=== PATIENT | female | born 2000 ===

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

== ENCOUNTER 2019-03-03 15:11 | Emergency (ER) | payer OTHER ==
[2019-03-03 15:36] VITALS: BP 157/99
[2019-03-03 16:10] LABS: Bilirubin,Urine NEG (Negative); Blood,Urine NEG (Negative); Color,Urine Yellow (Yellow); Protein,Urine <15 mg/dL mg/dL (Negative)
[2019-03-03 16:14] LABS: HCG Qualitative,Urine Negative (Negative)
--- NOTE | 2019-03-03 17:37 | Emergency Department Report ---
ED Female HPI - General Chief complaint: Urogenital-Female Stated complaint: UTI Time Seen by Provider: 03/03/19 17:32 Source: patient Mode of arrival: Ambulatory Limitations: No Limitations - History of Present Illness Initial comments: 18-year-old -[place] female comes to the emergency room taken as she has a UTI. Patient states that she's been having dysuria off and on for about 2 months. Patient reports that she has pain at the bottom of her stomach that started last night. Patient also complains of lower back pain. Patient's last menstrual period was 01/23/2019. Patient does admit to discharge. She denies any fever chills or nausea no vomiting. MD Complaint: vaginal discharge, dysuria, pelvic pain -: days(s), month(s) (2 or dysuria), During the night (pain in pelvic) Location: suprapubic Quality: cramping, sharp Consistency: constant Improves with: none Worsens with: none Are you Now?: No Last Menstrual Period: 01/23/19 EDC: 10/30/19 Associated Symptoms: vaginal discharge, abdominal pain, dysuria. denies: nausea/vomiting, fever/chills - Related Data Sexually active: Yes (unprotected) Previous Rx's Medication Instructions Recorded Last Taken Type Nitrofurantoin [place]/M-Cryst 100 mg PO Q12HR #14 capsule 05/24/17 Unknown Rx [Macrobid CAP] Phenazopyridine [Pyridium] 100 mg PO TID PRN #9 tab 05/24/17 Unknown Rx Azithromycin [Zithromax TAB] 1,000 mg PO ONCE #4 tablet 03/03/19 Unknown Rx Allergies Allergy/AdvReac Type Severity Reaction Status Date / Time No Known Allergies Allergy Verified 03/03/19 15:13 ED Review of Systems ROS: Stated complaint: UTI Other details as noted in HPI ED Past Medical Hx - Past Medical History Previous Medical History?: No - Surgical History Past Surgical History?: No - Social History Smoking Status: Current Every Day Smoker Substance Use Type: None - Medications Home Medications: Home Medications Medication Instructions Recorded Confirmed Last Taken Type Nitrofurantoin [place]/M-Cryst 100 mg PO Q12HR #14 capsule 05/24/17 Unknown Rx [Macrobid CAP] Phenazopyridine [Pyridium] 100 mg PO TID PRN #9 tab 05/24/17 Unknown Rx Azithromycin [Zithromax TAB] 1,000 mg PO ONCE #4 tablet 03/03/19 Unknown Rx ED Physical Exam - General Limitations: No Limitations General appearance: alert, in no apparent distress - Head Head exam: Present: atraumatic, normocephalic - Eye Eye exam: Present: normal appearance - ENT ENT exam: Present: mucous membranes moist - GI/Abdominal GI/Abdominal exam: Present: soft, tenderness (upper pubic). Absent: distended - External exam: Present: normal external exam Speculum exam: Present: vaginal discharge, cervical discharge (purulent greenish discharge) Bi-manual exam: Present: normal bi-manual exam. Absent: cervical motion tendernes, adnexal tenderness, uterine enlargement, uterine tenderness - Extremities Exam Extremities exam: Present: normal inspection, full ROM - Back Exam Back exam: Present: normal inspection - Neurological Exam Neurological exam: Present: alert, oriented X3 - Psychiatric Psychiatric exam: Present: normal affect, normal mood - Skin Skin exam: Present: warm, dry, intact, normal color. Absent: rash ED Course Vital Signs 03/03/19 15:35 Temperature 97.9 F Pulse Rate 99 H Respiratory 18 Rate Blood Pressure 157/99 O2 Sat by Pulse 99 Oximetry ED Medical Decision Making - Medical Decision Making Patient has been evaluated by this provider in fast track. Pelvic exam shows copious amount of greenish yellow discharge. Wet prep came back positive for many polynuclear sales. We'll treat patient for gonorrhea with Rocephin 250 mg IM Prescription for azithromycin 250 mg 4 pills at once. Discussed the patient she is to follow-up at the health [facility] for further STD check. Critical care attestation.: If time is entered above; I have spent that time in minutes in the direct care of this critically ill patient, excluding procedure time. ED Disposition Clinical Impression: STD (female), Dysuria Disposition: DC-01 TO HOME OR SELFCARE Is pt being admited?: No Does the pt Need Aspirin: No Condition: Stable Instructions: Sexually Transmitted Diseases (ED), Safe Sex (ED) Additional Instructions: Complete antibiotic as prescribed. Do not have sexual intercourse until her partner has been tested and treated. Please bring your picture ID to medical records here at the hospital to obtain your results. I also highly recommend free to follow-up at the health department for further STD check. He will need to be evaluated to see if you have HIV, herpes, hepatitis, syphilis. Prescriptions: Azithromycin [Zithromax TAB] 1,000 mg PO ONCE #4 tablet Referrals: VASQUEZ RODRIGEZ MD [Primary Care Provider] - 3-5 Days
[2019-03-03] MEDS ORDERED: ROCEPHIN IM ONE (18:13)
[2019-03-03] MEDS ORDERED: XYLOCAINE 1% MPF 5 mL INFILTRATI ONE (18:13)
[2019-03-03] MEDS ORDERED: IBUPROFEN PO ONE (18:15)
== END 2019-03-03 18:45 | disposition home or self-care (01) ==
LOC: ED 15:11
DX: A64 Unspecified sexually transmitted disease (principal); F17.200 Nicotine dependence, unspecified, uncomplicated; Z79.899 Other long term (current) drug therapy
CPT/HCPCS: 81001; 81025; 87210; 87591; 96372; 99284; J0696

== ENCOUNTER 2019-09-02 05:34 | Emergency (ER) | payer SELFPAY ==
[2019-09-02 05:41] VITALS: BP 147/93
[2019-09-02 06:46] LABS: Bilirubin,Urine NEG (Negative); Blood,Urine LG (Negative); Color,Urine Yellow (Yellow); Urobilinogen,Urine < 2.0 mg/dL (<2.0)
[2019-09-02 06:49] LABS: WBC,Urine > 182.0 /HPF (0.0-6.0)
[2019-09-02] MEDS ORDERED: PHENAZOPYRIDINE 200 MG TAB PO ONE (06:51)
--- NOTE | 2019-09-02 06:55 | Emergency Department Report ---
ED General Adult HPI - General Chief complaint: Urogenital-Female Stated complaint: POSS UTI Time Seen by Provider: 09/02/19 06:51 Source: patient Mode of arrival: Ambulatory Limitations: No Limitations - History of Present Illness Initial comments: Patient presents to the emergency department with a chief complaint of burning with urination that started early this morning. She denies fever or abdominal pain. Patient has no other symptoms. -: Sudden Radiation: non-radiation Severity scale (0 -10): 2 Quality: burning Consistency: constant Improves with: none Worsens with: none Associated Symptoms: denies other symptoms Treatments Prior to Arrival: none - Related Data Previous Rx's Medication Instructions Recorded Last Taken Type Nitrofurantoin [place]/M-Cryst 100 mg PO Q12HR #14 capsule 05/24/17 Unknown Rx [Macrobid CAP] Phenazopyridine [Pyridium] 100 mg PO TID PRN #9 tab 05/24/17 Unknown Rx Azithromycin [Zithromax TAB] 1,000 mg PO ONCE #4 tablet 03/03/19 Unknown Rx Phenazopyridine [Pyridium] 200 mg PO BID #6 tab 09/02/19 Unknown Rx Sulfamethoxazole/Trimethoprim 1 each PO BID #14 tablet 09/02/19 Unknown Rx [Bactrim DS TAB] traMADol [Ultram] 50 mg PO Q6HR PRN #15 tablet 09/02/19 Unknown Rx Allergies Allergy/AdvReac Type Severity Reaction Status Date / Time No Known Allergies Allergy Verified 03/03/19 15:13 ED Review of Systems ROS: Stated complaint: POSS UTI Other details as noted in HPI Comment: All other systems reviewed and negative Constitutional: denies: chills, fever Eyes: denies: eye pain, eye discharge, vision change ENT: denies: ear pain, throat pain Respiratory: denies: cough, shortness of breath, wheezing Cardiovascular: denies: chest pain, palpitations Endocrine: no symptoms reported Gastrointestinal: denies: abdominal pain, nausea, diarrhea Genitourinary: dysuria. denies: urgency, discharge Musculoskeletal: denies: back pain, joint swelling, arthralgia Skin: denies: rash, lesions Neurological: denies: headache, weakness, paresthesias Psychiatric: denies: anxiety, depression Hematological/Lymphatic: denies: easy bleeding, easy bruising ED Past Medical Hx - Past Medical History Previous Medical History?: No - Surgical History Past Surgical History?: No - Social History Smoking Status: Former Smoker Substance Use Type: Alcohol, Marijuana - Medications Home Medications: Home Medications Medication Instructions Recorded Confirmed Last Taken Type Nitrofurantoin [place]/M-Cryst 100 mg PO Q12HR #14 capsule 05/24/17 Unknown Rx [Macrobid CAP] Phenazopyridine [Pyridium] 100 mg PO TID PRN #9 tab 05/24/17 Unknown Rx Azithromycin [Zithromax TAB] 1,000 mg PO ONCE #4 tablet 03/03/19 Unknown Rx Phenazopyridine [Pyridium] 200 mg PO BID #6 tab 09/02/19 Unknown Rx Sulfamethoxazole/Trimethoprim 1 each PO BID #14 tablet 09/02/19 Unknown Rx [Bactrim DS TAB] traMADol [Ultram] 50 mg PO Q6HR PRN #15 tablet 09/02/19 Unknown Rx ED Physical Exam - General Limitations: No Limitations General appearance: alert, in no apparent distress - Head Head exam: Present: atraumatic, normocephalic - Eye Eye exam: Present: normal appearance, PERRL, EOMI - ENT ENT exam: Present: mucous membranes moist - Neck Neck exam: Present: normal inspection - Respiratory Respiratory exam: Present: normal lung sounds bilaterally. Absent: respiratory distress - Cardiovascular Cardiovascular Exam: Present: regular rate, normal rhythm. Absent: systolic murmur, diastolic murmur, rubs, gallop - GI/Abdominal GI/Abdominal exam: Present: soft, normal bowel sounds. Absent: distended, tenderness - Extremities Exam Extremities exam: Present: normal inspection - Back Exam Back exam: Present: normal inspection - Neurological Exam Neurological exam: Present: alert, oriented X3, CN II-XII intact - Psychiatric Psychiatric exam: Present: normal affect, normal mood - Skin Skin exam: Present: warm, dry, intact, normal color. Absent: rash ED Course Vital Signs 09/02/19 05:38 Temperature 97.8 F Pulse Rate 101 H Respiratory 18 Rate Blood Pressure 147/93 O2 Sat by Pulse 95 Oximetry ED Medical Decision Making - Lab Data Lab Results 09/02/19 Range/Units 05:35 Urine Color Yellow (Yellow) Urine Turbidity Cloudy (Clear) Urine pH 6.0 (5.0-7.0) Ur Specific [place] 1.012 (1.003-1.030) Urine Protein 30 mg/dl (Negative) mg/dL Urine Glucose (UA) Neg (Negative) mg/dL Urine Ketones Neg (Negative) mg/dL Urine Blood Lg (Negative) Urine Nitrite Neg (Negative) Urine Bilirubin Neg (Negative) Urine Urobilinogen < 2.0 (<2.0) mg/dL Ur Leukocyte Esterase Lg (Negative) Urine WBC (Auto) > 182.0 H (0.0-6.0) /HPF Urine RBC (Auto) 77.0 (0.0-6.0) /HPF U Epithel Cells (Auto) 3.0 (0-13.0) /HPF Critical care attestation.: If time is entered above; I have spent that time in minutes in the direct care of this critically ill patient, excluding procedure time. ED Disposition Clinical Impression: UTI (urinary tract infection), Dysuria Disposition: TO HOME OR SELFCARE Is pt being admited?: No Does the pt Need Aspirin: No Condition: Stable Instructions: Urinary Tract Infection in Women (ED) Additional Instructions: return if worse Prescriptions: Sulfamethoxazole/Trimethoprim [Bactrim DS TAB] 1 each PO BID #14 tablet Phenazopyridine [Pyridium] 200 mg PO BID #6 tab traMADol [Ultram] 50 mg PO Q6HR PRN #15 tablet PRN Reason: Pain Referrals: [facility] [Provider Group] - 3-5 Days [facility] [Provider Group] - 3-5 Days Time of Disposition: 07:06
[2019-09-02 06:59] LABS: HCG Qualitative,Urine Negative (Negative)
[2019-09-02] MEDS ORDERED: traMADol 50 MG TAB PO ONE (07:02)
[2019-09-02] MEDS ORDERED: SULFAMETHOXAZOLE/TRIMETHOPRIM 800/160MG DS TAB PO ONE (07:02)
== END 2019-09-02 07:34 | disposition home or self-care (01) ==
LOC: ED 05:34
DX: N39.0 Urinary tract infection, site not specified (principal); Z87.891 Personal history of nicotine dependence; F12.10 Cannabis abuse, uncomplicated
CPT/HCPCS: 81001; 81025

== ENCOUNTER 2020-04-19 17:29 | Emergency (ER) | payer SELFPAY ==
[2020-04-19 18:13] VITALS: BP 141/98
--- NOTE | 2020-04-19 18:14 | Event Note ---
ED Screening Note ED Screening Note: dysuria that began a week ago states she gets frequent UTIs no urinary frequency states she has been any azo occasional nausea lower back pain no vomiting no diarrhea states she has also been constipated no abd pain PMHx none no allergies to meds LNMP: 03/23/2020 This initial assessment/diagnostic orders/clinical plan/treatment(s) is/are subject to change based on patients health status, clinical progression and re- assessment by fellow clinical providers in the ED. Further treatment and workup at subsequent clinical providers discretion. Patient/guardian urged not to elope from the ED as their condition may be serious if not clinically assessed and managed. Initial orders include: UA, urine preg
--- NOTE | 2020-04-19 18:36 | Emergency Department Report ---
ED Female HPI - General Chief complaint: Urogenital-Female Stated complaint: UTI/BELLY BUTTON LEAKING Time Seen by Provider: 04/19/20 18:10 Source: patient Mode of arrival: Ambulatory Limitations: No Limitations - History of Present Illness Initial comments: pt is a 19 yo female who presents to the ED with c/o dysuria that began a week ago states she gets frequent UTIs no urinary frequency states she has been taking azo occasional nausea lower back pain no vomiting no diarrhea no abd pain no vaginal discharge or irritation or vaginal pain she states she has intermittent constipation but is tolerating PO intake no vomiting PMHx none no allergies to meds LNMP: 03/23/2020 - Related Data Previous Rx's Medication Instructions Recorded Last Taken Type Nitrofurantoin Gove/M-Cryst 100 mg PO Q12HR #14 capsule 05/24/17 Unknown Rx [Macrobid CAP] Phenazopyridine [Pyridium] 100 mg PO TID PRN #9 tab 05/24/17 Unknown Rx Azithromycin [Zithromax TAB] 1,000 mg PO ONCE #4 tablet 03/03/19 Unknown Rx Phenazopyridine [Pyridium] 200 mg PO BID #6 tab 09/02/19 Unknown Rx Sulfamethoxazole/Trimethoprim 1 each PO BID #14 tablet 09/02/19 Unknown Rx [Bactrim DS TAB] traMADoL [Ultram] 50 mg PO Q6HR PRN #15 tablet 09/02/19 Unknown Rx Ondansetron [Zofran Odt] 4 mg PO Q8HR PRN #10 tab.rapdis 04/19/20 Unknown Rx cephALEXin [Keflex] 500 mg PO BID 7 Days #14 cap 04/19/20 Unknown Rx Allergies Allergy/AdvReac Type Severity Reaction Status Date / Time No Known Allergies Allergy Verified 03/03/19 15:13 ED Review of Systems ROS: Stated complaint: UTI/BELLY BUTTON LEAKING Other details as noted in HPI Comment: All other systems reviewed and negative ED Past Medical Hx - Past Medical History Previous Medical History?: Yes Additional medical history: migraines, UTI - Surgical History Past Surgical History?: No - Social History Smoking Status: Current Every Day Smoker Substance Use Type: Marijuana - Medications Home Medications: Home Medications Medication Instructions Recorded Confirmed Last Taken Type Nitrofurantoin Gove/M-Cryst 100 mg PO Q12HR #14 capsule 05/24/17 Unknown Rx [Macrobid CAP] Phenazopyridine [Pyridium] 100 mg PO TID PRN #9 tab 05/24/17 Unknown Rx Azithromycin [Zithromax TAB] 1,000 mg PO ONCE #4 tablet 03/03/19 Unknown Rx Phenazopyridine [Pyridium] 200 mg PO BID #6 tab 09/02/19 Unknown Rx Sulfamethoxazole/Trimethoprim 1 each PO BID #14 tablet 09/02/19 Unknown Rx [Bactrim DS TAB] traMADoL [Ultram] 50 mg PO Q6HR PRN #15 tablet 09/02/19 Unknown Rx Ondansetron [Zofran Odt] 4 mg PO Q8HR PRN #10 tab.rapdis 04/19/20 Unknown Rx cephALEXin [Keflex] 500 mg PO BID 7 Days #14 cap 04/19/20 Unknown Rx ED Physical Exam - General Limitations: No Limitations General appearance: alert, in no apparent distress - Head Head exam: Present: atraumatic, normocephalic - Eye Eye exam: Present: normal appearance - ENT ENT exam: Present: mucous membranes moist - Respiratory Respiratory exam: Present: normal lung sounds bilaterally. Absent: respiratory distress, wheezes, rales, rhonchi, stridor, chest wall tenderness, accessory muscle use, decreased breath sounds, prolonged expiratory - Cardiovascular Cardiovascular Exam: Present: regular rate, normal rhythm, normal heart sounds. Absent: systolic murmur, diastolic murmur, rubs, gallop - GI/Abdominal GI/Abdominal exam: Present: soft, normal bowel sounds, other (possible small umbilical hernia easily reducible no signs of strangulation, no abnormality present to the skin of the umbilicus ). Absent: distended, tenderness, guarding, rebound, rigid - Back Exam Back exam: Absent: CVA tenderness (R), CVA tenderness (L) - Neurological Exam Neurological exam: Present: alert, oriented X3 - Psychiatric Psychiatric exam: Present: normal affect, normal mood - Skin Skin exam: Present: warm, dry, intact ED Course Vital Signs 04/19/20 18:05 Temperature 98.1 F Pulse Rate 85 Respiratory 18 Rate Blood Pressure 141/98 [Left] O2 Sat by Pulse 98 Oximetry ED Medical Decision Making - Lab Data Lab Results 04/19/20 Range/Units 18:26 Urine Color Corie (Yellow) Urine Turbidity Clear (Clear) Urine pH 7.0 (5.0-7.0) Ur Specific [place] 1.005 (1.003-1.030) Urine Protein <15 mg/dl (Negative) mg/dL Urine Glucose (UA) Neg (Negative) mg/dL Urine Ketones Neg (Negative) mg/dL Urine Blood Neg (Negative) Urine Nitrite Pos (Negative) Ur Reducing Substances Not Reportable Urine Bilirubin Neg (Negative) Urine Ictotest Not Reportable Urine Urobilinogen 4.0 (<2.0) mg/dL Ur Leukocyte Esterase Sm (Negative) Urine WBC (Auto) 19.0 H (0.0-6.0) /HPF Urine RBC (Auto) 5.0 (0.0-6.0) /HPF U Epithel Cells (Auto) 17.0 H (0-13.0) /HPF Urine Bacteria (Auto) 2+ (Negative) /HPF Urine Mucus Few /HPF Urine Yeast (Budding) 1+ /HPF Urine HCG, Qual Negative (Negative) - Medical Decision Making pt is a 19 yo female who presents to the ED with c/o dysuria that began a week ago states she gets frequent UTIs no urinary frequency states she has been taking azo occasional nausea lower back pain no vomiting no diarrhea no abd pain no vaginal discharge or irritation or vaginal pain she states she has intermittent constipation but is tolerating PO intake no vomiting PMHx none no allergies to meds LNMP: 03/23/2020 vss on exam: possible small umbilical hernia easily reducible no signs of strangulation, no abnormality present to the skin of the umbilicus, no abd ttp, no guarding, no rebound, no rigidity, no peritoneal signs, normal bowel sounds, no CVAT. Urine is negative. UA with small amount of white blood cells and leukocyte esterase, there are many epithelial cells, could be related to contamination, but due to urinary symptoms will treat patient for UTI. Will have patient follow-up with a primary care doctor due to frequent urinary tract infections for further evaluation and management and to retest urine. pt given prescription for keflex and zofran. advised pt please take medication as prescribed. increase your water intake. please follow up with a primary care doctor and discuss frequent urinary tract infections. return to the emergency room for any new or worsening symptoms. Critical care attestation.: If time is entered above; I have spent that time in minutes in the direct care of this critically ill patient, excluding procedure time. ED Disposition Clinical Impression: UTI (urinary tract infection) Qualifiers: Urinary tract infection type: acute cystitis Hematuria presence: without hematuria Qualified Code(s): N30.00 - Acute cystitis without hematuria Disposition: TO HOME OR SELFCARE Is pt being admited?: No Does the pt Need Aspirin: No Condition: Stable Instructions: Urinary Tract Infection in Women (ED) Additional Instructions: please take medication as prescribed. increase your water intake. please follow up with a primary care doctor and discuss frequent urinary tract infections. return to the emergency room for any new or worsening symptoms. Prescriptions: cephALEXin [Keflex] 500 mg PO BID 7 Days #14 cap Ondansetron [Zofran Odt] 4 mg PO Q8HR PRN #10 tab.rapdis PRN Reason: Nausea Referrals: ARLETTE KITCHEN MD [Staff Physician] - 2-3 Days [facility] [place] [Provider Group] - 2-3 Days [facility] [Outside] - 2-3 Days Time of Disposition: 18:59 Print Language: MALAGASY
[2020-04-19 18:39] LABS: HCG Qualitative,Urine Negative (Negative)
[2020-04-19 18:40] LABS: Bacteria,Urine 2+ /HPF (Negative); Bilirubin,Urine NEG (Negative); Blood,Urine NEG (Negative); Color,Urine Amber (Yellow); Mucus,Urine FEW /HPF; Protein,Urine <15 mg/dL mg/dL (Negative)
== END 2020-04-19 19:04 | disposition home or self-care (01) ==
LOC: ED 17:29
DX: N39.0 Urinary tract infection, site not specified (principal); G43.909 Migraine, unspecified, not intractable, without status migrainosus; F17.200 Nicotine dependence, unspecified, uncomplicated; F12.90 Cannabis use, unspecified, uncomplicated; Z79.899 Other long term (current) drug therapy
CPT/HCPCS: 81001; 81025; 87086; 99283

== ENCOUNTER 2021-09-17 15:53 | Emergency (ER) | payer SELFPAY ==
[2021-09-17 15:58] VITALS: BP 125/80
== END 2021-09-17 19:00 ==
LOC: ED 15:53
DX: M79.89 Other specified soft tissue disorders (principal); M79.674 Pain in right toe(s); Z53.21 Procedure and treatment not carried out due to patient leaving prior to being seen by health care provider